=== PATIENT | female | born 1965 | race Caucasian/White ===

== ENCOUNTER 2020-11-23 04:24 | Day surgery (SDC) | payer BC, SELFPAY ==
[2020-11-16 14:03] VITALS: BMI 48.0
--- NOTE | 2020-11-23 08:38 | WPDANESEPPF ---
Anes - Initial Pre Proc Eval Procedure: Operation Date: 11/23/20 10:30 Proposed Procedures p Screening Colonoscopy - Clemente Parker MD Date/Time: 11/23/20 08:38 Surgeon: Clemente Parker MD Pre Op Diagnosis: neoplasm screening Patient Data Age: 54 Gender: F Height: 1.63 m Weight: 127 kg Allergies Allergy/AdvReac Type Severity Reaction Status Date / Time thimerosal AdvReac Intermediate Rash Verified 11/23/20 09:55 Home Medications Medication Instructions Recorded Confirmed Type diphenhydramine HCl 25 mg capsule 25 mg PO .hs PRN cap 02/24/19 11/16/20 History famotidine [Pepcid AC] 10 mg PO DAILY 11/16/20 11/16/20 History paroxetine HCl 10 mg tablet 10 mg PO DAILY #30 tablet 11/19/20 Rx Patient hx anesthesia problems: none Family hx anesthesia problems: none PMFSH Past Medical History Medical History (Updated 11/23/20 @ 08:39 by Kaden Gutierrez MD) Esophageal reflux disease Hx of renal cell cancer Hyperlipidemia Morbid obesity with BMI of 45.0-49.9, adult Osteoarthritis of left knee Surgical History Surgical History History of nephrectomy (~2013) Family History Family History Sibling Depression Patient's sister is in good health Father Hypertension Family history of diabetes mellitus in first degree relative Mother Patient's mother is in good health Unknown Stomach cancer Hypertension Social History Social History Smoking packs per day: 1 Smoking cigarettes per day: 20.0 Years smoked: 4 Smoking pack-years: 4.00 Smoking status: Former smoker Tobacco type: cigarettes Second hand tobacco smoke exposure: No Alcohol intake: current Substance use: current Substance use type: marijuana Living arrangements: with family Gender identity (if verbalized by the patient): Female Spiritual care concerns: No Anes - Eval Final PreProcedure Day of Procedure 11/23/20 08:38 Patient weight: obese Heart: regular rate and rhythm Lungs: clear to auscultation and normal air movement Airway: Mallampati scale class II Neurological: alert and oriented Last oral intake: >/= 8 hours ASA classification: III Emergent: no Anesthetic plan: proceed Anesthesia type and monitoring: general GIVS Informed Consent: The patient's anesthetic plan and its attendant risks and benefits were discussed with the patient/family/POA. Questions were solicited and answers provided to the satisfaction of the patient/family/POA.
[2020-11-23 09:56] VITALS: BP 149/114; PULSE 103; RESP 25; TEMP 36; O2SAT 98; BMI 49.2
--- NOTE | 2020-11-23 10:20 | WPDGICN ---
Assessment and Plan Assessment and plan (1) Encounter for screening colonoscopy: Code(s): Z12.11 - Encounter for screening for malignant neoplasm of colon Status: Acute Assessment and Plan: Screening colonoscopy advised because of her age. High-fiber diet advised. Further recommendations will be given after endoscopy. (2) Hx of renal cell cancer: Code(s): Z85.528 - Personal history of other malignant neoplasm of kidney Status: Acute Assessment and Plan: Renal cell carcinoma felt to be resected for cure. (3) Morbid obesity with BMI of 45.0-49.9, adult: Code(s): E66.01 - Morbid (severe) obesity due to excess calories; Z68.42 - Body mass index [BMI] 45.0-49.9, adult Status: Acute (4) Incisional hernia: Code(s): K43.2 - Incisional hernia without obstruction or gangrene Status: Acute Assessment and Plan: Small hernia plan for observation at this time. GI Consult Note Consult date/time: 11/23/20 10:20 HPI: Maricarmen Valentin is a 54 year old female Presents for screening colonoscopy. Patient reports that her current weight appetite bowel movements are normal. She denies abdominal pain. She has had no bleeding. Family history is noncontributory. Past medical history is significant for renal cell carcinoma cured after nephrectomy. She also has been follow-up for obesity and was found to have a ventral hernia after her renal surgery. Review of Systems Review of Systems: All systems reviewed & are unremarkable except as noted in HPI and below PMFSH Past Medical History Medical History (Updated 11/23/20 @ 10:22 by Clemente Parker MD) Esophageal reflux disease Hx of renal cell cancer Hyperlipidemia Morbid obesity with BMI of 45.0-49.9, adult Osteoarthritis of left knee Surgical History Surgical History History of nephrectomy (~2013) Family History Family History Sibling Depression Patient's sister is in good health Father Hypertension Family history of diabetes mellitus in first degree relative Mother Patient's mother is in good health Unknown Stomach cancer Hypertension Social History Social History Smoking packs per day: 1 Smoking cigarettes per day: 20.0 Years smoked: 4 Smoking pack-years: 4.00 Smoking status: Former smoker Tobacco type: cigarettes Second hand tobacco smoke exposure: No Alcohol intake: current Substance use: current Substance use type: marijuana Living arrangements: with family Gender identity (if verbalized by the patient): Female Spiritual care concerns: No Meds Home Medications and Allergies Home Medications Medication Instructions Recorded Confirmed Type diphenhydramine HCl 25 mg capsule 25 mg PO .hs PRN cap 02/24/19 11/16/20 History famotidine [Pepcid AC] 10 mg PO DAILY 11/16/20 11/16/20 History paroxetine HCl 10 mg tablet 10 mg PO DAILY #30 tablet 11/19/20 Rx Allergies Allergy/AdvReac Type Severity Reaction Status Date / Time thimerosal AdvReac Intermediate Rash Verified 11/23/20 09:55 Vital Signs Vital Signs - 24 hr 11/23/20 09:56 Temperature 96.8 F L Pulse Rate 103 H Respiratory Rate 25 H Blood Pressure 149/114 H Pulse Oximetry 98 Exam Narrative: Physical exam reveals patient be alert. Vital signs are stable. HEENT exam is unremarkable. Patient is anicteric. Lungs are clear to auscultation and percussion. Heart is without murmur or extra sounds. Abdominal exam is somewhat obese. Bowel sounds are present soft nontender with no organomegaly. She has an incisional hernia. Extremities are without clubbing cyanosis or edema. Digital external rectal exam is normal.
[2020-11-23] MEDS: LACTATED RINGERS 1,000 ML 150 ML IV CONT (10:34)
[2020-11-23 10:35] VITALS: BP 118/90
[2020-11-23 10:54] VITALS: BP 126/95; PULSE 82; RESP 17; O2SAT 97
[2020-11-23 11:04] VITALS: BP 128/94; PULSE 80; RESP 19; O2SAT 98
[2020-11-23 11:14] VITALS: BP 131/100; PULSE 79; RESP 21; O2SAT 99
== END 2020-11-23 11:27 | disposition home or self-care (01) ==
PROVIDERS: PCP Internal Medicine; Visit Provider Internal Medicine Gastroenterology
PROC: 0DJD8ZZ Inspection of Lower Intestinal Tract, Via Natural or Artificial Opening Endoscopic (ICD-10-PCS; CPT 45378; principal; 2020-11-23 10:30)
DX: Z12.11 Encounter for screening for malignant neoplasm of colon (principal); K64.8 Other hemorrhoids; Z85.528 Personal history of other malignant neoplasm of kidney; K43.2 Incisional hernia without obstruction or gangrene; E66.01 Morbid (severe) obesity due to excess calories; Z68.42 Body mass index [BMI] 45.0-49.9, adult; E78.5 Hyperlipidemia, unspecified; K21.9 Gastro-esophageal reflux disease without esophagitis; Z87.891 Personal history of nicotine dependence; F12.90 Cannabis use, unspecified, uncomplicated
CPT/HCPCS: 45378; J2704; J7120

== ENCOUNTER 2024-08-01 12:53 | Outpatient (CLI) | payer BC, SELFPAY ==
--- NOTE | ~2024-08-01 | XR_ITS ---
XR shoulder RT min 2V Ordering provider: Marcelino May APRN History: . S42.90XA - Fracture of unspecified shoulder girdle, part ... . Comparison: None. FINDINGS: BONES: Destructive changes seen in the right humeral proximal metaphysis with fracture suggestive of pathological fracture. Further evaluation advised. JOINT SPACES: The acromioclavicular joint mild osteoarthritic changes. The glenohumeral joint is nor mal. SOFT TISSUES: Normal. IMPRESSION: Highly suggestive Pathological fracture in the right humeral neck. Reviewed, dictated and finalized at location A.
== END 2024-08-01 12:54 | disposition home or self-care (01) ==
LOC: ANHIMG 12:55
PROVIDERS: PCP Internal Medicine; Visit Provider Nurse Practitioner
DX: S42.90XA Fracture of unspecified shoulder girdle, part unspecified, initial encounter for closed fracture (principal); X58.XXXA Exposure to other specified factors, initial encounter
CPT/HCPCS: 73030